=== PATIENT | female | born 2000 | race Caucasian/White ===

== ENCOUNTER 2019-08-15 09:10 | Emergency (ER) | payer MEDICAID ==
[~2019-08-15] VITALS: Ht 165.1 cm; Wt 127.0 kg
[2019-08-15 09:22] VITALS: BP_SYST 133
--- NOTE | 2019-08-15 09:22 | NUR ---
Patient to ER bed 4 to gown for evaluation. Side rails up. Report given to JENNIFER Boateng.
--- NOTE | 2019-08-15 09:23 | NUR ---
Patient is awake, alert, and oriented x4. Patient reports having tonsillectomy on 08/05 and has had 3 episodes of vomit with dark red blood and sore throat.
--- NOTE | 2019-08-15 09:31 | NUR ---
ER Dr. Jackson at bedside examining patient.
[2019-08-15] MEDS ORDERED: cefTRIAXone 1 GM in D5W 50 ML IV ONE (09:45)
[2019-08-15] MEDS ORDERED: ONDANSETRON HCL 4 MG/2 ML VIAL IVP ONE (09:45)
[2019-08-15] MEDS ORDERED: NACL 0.9% 1,000 ML IV ONE (09:45)
[2019-08-15] MEDS ORDERED: cefTRIAXone 1 GM VIAL ONE (09:55)
--- NOTE | 2019-08-15 10:00 | NUR ---
Dr. Jackson stated no blood cultures needed.
[2019-08-15 10:21] LABS: BASOPHILS % (AUTO) 0.6 % (0.0-2.0); EOSINOPHILS # (AUTO) 0.1 K/uL (0.0-0.4); HEMATOCRIT 42.2 % (36-48); HEMOGLOBIN 13.9 g/dL (12.0-16.0); LYMPHOCYTES # (AUTO) 2.4 K/uL (1.0-5.5); LYMPHOCYTES % (AUTO) 28.4 % (20.5-51.5); MEAN CORPUSCULAR HEMOGLOBIN 27 pg (27-31); MEAN CORPUSCULAR HGB CONC 33 % (32-36); MEAN CORPUSCULAR VOLUME 81 fL (79.0-98.0); MONOCYTES # (AUTO) 0.8 K/uL (0.0-1.0); MONOCYTES % (AUTO) 9.2 % (1.7-9.3); NEUTROPHILS # (AUTO) 5.1 K/uL (1.8-7.7); NEUTROPHILS % (AUTO) 60.8 % (40.0-70.0); PLATELET COUNT (AUTO) 308 K/uL (130-430); RED BLOOD CELL COUNT(AUTO) 5.23 MIL/uL (4.2-6.2); RED CELL DISTRIBUTION WIDTH 14.6 % (9.0-15.0); WHITE BLOOD COUNT (AUTO) 8.3 K/uL (4.5-11.0)
[2019-08-15 10:33] LABS: INR 1.2 (0.8-1.2); PROTHROMBIN TIME 11.7 SECS (9.5-12.5)
[2019-08-15] MEDS ORDERED: DEXAMETHASONE SOD PHOSPHATE 10 MG/ML VIAL IVP ONE (10:45)
[2019-08-15 11:25] VITALS: BP_SYST 120
--- NOTE | 2019-08-15 11:25 | NUR ---
Patient given written and verbal discharge instructions and verbalizes understanding. ER MD discussed with patient the results and treatment provided. Patient in stable condition. ID arm band removed. IV catheter removed intact and dressing applied, no active bleeding. Rx of Amoxicillan and Zofran given. Patient educated on pain management and to follow up with PMD. Pain Scale 0/10. Opportunity for questions provided and answered. Medication side effect fact sheet provided.
== END 2019-08-15 11:25 | disposition home or self-care (01) ==
LOC: SED 09:10
DX: J95.830 Postprocedural hemorrhage of a respiratory system organ or structure following a respiratory system procedure (principal); D69.9 Hemorrhagic condition, unspecified; Z91.010 Allergy to peanuts
CPT/HCPCS: 36415; 84703; 85025; 85610; 96365; 96375; 99284; J0696; J1100; J7030; J2405

== ENCOUNTER 2022-06-11 07:08 | Day surgery (SDC) | payer MEDICAID ==
[2022-06-10 15:14] LABS: HCG,QUAL RESULT NEGATIVE (NEGATIVE)
[~2022-06-11] VITALS: Ht 165.1 cm; Wt 154.2 kg
[2022-06-11] MEDS ORDERED: fentaNYL CITRATE/PF 100 MCG/2 ML AMP ONE ×2 (07:22→09:51)
[2022-06-11] MEDS ORDERED: SIMETHICONE 40 MG/0.6 ML ML ONE (07:22)
[2022-06-11] MEDS ORDERED: MIDAZOLAM HCL 5 MG/5 ML VIAL ONE ×2 (07:23→09:51)
[2022-06-11] MEDS ORDERED: DIPHENHYDRAMINE INJ 50 MG/ML VIAL ONE (09:40)
[2022-06-11 11:58] VITALS: BP_SYST 158
== END 2022-06-11 10:50 | disposition home or self-care (01) ==
LOC: SDS 07:08 → SMU 07:09 → SDS 10:50
PROVIDERS: ATTEND Internal Medicine
DX: K21.00 Gastro-esophageal reflux disease with esophagitis, without bleeding (principal); K29.50 Unspecified chronic gastritis without bleeding; E66.01 Morbid (severe) obesity due to excess calories; Z91.040 Latex allergy status; Z91.010 Allergy to peanuts; Z20.822 Contact with and (suspected) exposure to COVID-19; Z68.43 Body mass index [BMI] 50.0-59.9, adult; Z79.899 Other long term (current) drug therapy
CPT/HCPCS: 87426; 84703; 36415 ×2; 43239; 87081; 88305; 88312; 88313; 99152; G0378; J1200; J2250; J3010